=== PATIENT | female | born 1950 | race Caucasian/White ===

== ENCOUNTER 2019-05-27 12:10 | Emergency (ER) | payer BC, MEDICARE ==
[2019-05-27 13:02] VITALS: BP 138/66
--- NOTE | 2019-05-27 13:41 | UC ---
Complaint Female HPI - HPI Summary HPI Summary: Burning on urination started yesterday - History Of Current Complaint Chief Complaint: [facility]CGU Stated Complaint: URINARY COMPLAINT Time Seen by Provider: 05/27/19 13:04 Hx Obtained From: Patient ?: No Onset/Duration: Gradual Onset Timing: Intermittent Severity Initially: Mild Severity Currently: Mild Pain Intensity: 0 Character: Burning Aggravating Factor(s): Urination Associated Signs And Symptoms: Positive: Negative. Negative: Vaginal Bleeding/ Discharge, Vaginal Discharge - Allergies/Home Medications Allergies/Adverse Reactions: Allergies Allergy/AdvReac Type Severity Reaction Status Date / Time Adhesive Tape Allergy Severe Rash Verified 05/31/13 15:40 lansoprazole [From Prevacid] Allergy Severe Rash Verified 05/27/19 12:52 Penicillins Allergy Severe Rash Verified 05/27/19 12:52 Sulfa (Sulfonamide Allergy Severe Rash Verified 05/27/19 12:52 Antibiotics) Home Medications: Home Medications Acetaminophen [Acetaminophen Extra Strength] 1,000 mg PO BID PRN 05/27/19 [ History Confirmed 05/27/19] Amitriptyline TAB* [Elavil TAB*] 50 mg PO BEDTIME 05/27/19 [History Confirmed ] Aspirin [Adult Aspirin Regimen] 81 mg PO QPM 05/27/19 [History Confirmed ] Blink Tears Lubricating Eye Dr 1 dose BOTH EYES SEE INSTRUCTIONS PRN 05/27/19 [ History Confirmed 05/27/19] Escitalopram * [Lexapro 5 mg (NF)] 5 mg PO DAILY 05/27/19 [History Confirmed 08/05] Esomeprazole Magnesium [Nexium 24Hr] 20 mg PO AC 05/27/19 [History Confirmed 08/05] Eye Allergy Relief 1 drop BOTH EYES BID PRN 05/27/19 [History Confirmed 05/27/19 ] Levothyroxine TAB* [Synthroid TAB*] 50 mcg PO DAILY 05/27/19 [History Confirmed 05/27/19] Losartan/Hydrochlorothiazide [Losartan Potassium/Hydroc 100-25 mg] 1 tab PO QAM 05/27/19 [History Confirmed 05/27/19] Multivitamin [Multivitamins] 1 each PO QPM 05/27/19 [History Confirmed 05/27/19] See Med List For Supplements 05/27/19 [History] Simply Saline 1 dose .ROUTE SEE INSTRUCTIONS 05/27/19 [History Confirmed ] Vitamins B12, D3 1 tab PO QPM 05/27/19 [History Confirmed 05/27/19] metFORMIN* [Glucophage 500 MG TAB *] 500 mg PO QPM 05/27/19 [History Confirmed 05/27/19] PMH/Surg Hx/FS Hx/Imm Hx Previously Healthy: Yes Endocrine History: Diabetes, Thyroid Disease, Dyslipidemia Cardiovascular History: Hypertension - Surgical History Surgical History: Yes Surgery Procedure, Year, and Place: [facility] hysterectomy - Social History Alcohol Use: None Substance Use Type: None Smoking Status (MU): Light Every Day Tobacco Smoker Type: Cigarettes Amount Used/How Often: 1/ pack per day Household Exposure Type: Cigarettes Review of Systems All Other Systems Reviewed And Are Negative: Yes Constitutional: Positive: Negative Genitourinary: Positive: Dysuria, Frequency, Urgency. Negative: Vaginal/Penile Burning, Vaginal/Penile Itching, Vaginal/Penile Discharge, Vaginal/Penile Pain, Vaginal/Penile Tenderness Is Patient Immunocompromised?: No Physical Exam Triage Information Reviewed: Yes Appearance: Well-Appearing, No Pain Distress, Well-Nourished Vital Signs: Initial Vital Signs Temp 99 F 05/27/19 12:57 Pulse 77 05/27/19 12:57 Resp 20 05/27/19 12:57 BP 138/66 05/27/19 12:57 Pulse Ox 97 05/27/19 12:57 Vital Signs Reviewed: Yes Respiratory: Positive: Lungs clear, Normal breath sounds, No respiratory distress, No accessory muscle use Cardiovascular: Positive: RRR, No Murmur, Pulses Normal, Brisk Capillary Refill Abdomen Description: Positive: Nontender, No Organomegaly, Soft. Negative: CVA Tenderness (R), CVA Tenderness (L), Distended, Guarding, Hepatomegaly, McBurney' s Point Tenderness, Splenomegaly Bowel Sounds: Positive: Present Musculoskeletal: Positive: Strength Intact, ROM Intact Neurological: Positive: Alert, Muscle Tone Normal Psychological Exam: Normal Skin Exam: Normal Complaint Female Dx - Course Course Of Treatment: U/A positive for leukocytes - Differential Dx/Diagnosis Provider Diagnosis: UTI (urinary tract infection) Discharge - Sign-Out/Discharge Documenting (check all that apply): Patient Departure All imaging exams completed and their final reports reviewed: No Studies - Discharge Plan Condition: Good Disposition: HOME Prescriptions: Nitrofurantoin Monohyd/M-Cryst [Macrobid 100 mg Capsule] 100 mg PO BID 7 Days # 14 cap Patient Education Materials: Urinary Tract Infection in Women (DC) Referrals: Temitope Reilly MD [Primary Care Provider] - Additional Instructions: Increase fluids, Go to the ER if you develop fever, chills, worsening symptoms, back pain - Billing Disposition and Condition Condition: GOOD Disposition: Home
--- NOTE | 2019-05-31 09:27 | UC ---
- Progress Note Progress Note: Urine culture results come back from May 27, 2019. Klebsiella pneumonia grows out that's insensitive to nitrofurantoin. Patient was placed on nitrofurantoin. Patient is allergic to penicillin and sulfa based antibiotics. Nursing to call patient. Antibiotic he's to be changed. With the patient's history of penicillin allergy need to find out if she is allergic to cephalosporins. My plan would be if she does not have a severe reaction to penicillins and is not allergic to cephalosporins to start her on Keflex. However if she does have a severe reaction to penicillins are has had reactions of this once in the past I will start her on Cipro. Course/Dx - Diagnoses Provider Diagnoses: UTI (urinary tract infection) Discharge - Sign-Out/Discharge Documenting (check all that apply): Patient Departure All imaging exams completed and their final reports reviewed: No Studies - Discharge Plan Condition: Good Disposition: HOME Prescriptions: Nitrofurantoin Monohyd/M-Cryst [Macrobid 100 mg Capsule] 100 mg PO BID 7 Days # 14 cap Patient Education Materials: Urinary Tract Infection in Women (DC) Referrals: Temitope Reilly MD [Primary Care Provider] - Additional Instructions: Increase fluids, Go to the ER if you develop fever, chills, worsening symptoms, back pain - Billing Disposition and Condition Condition: GOOD Disposition: Home
== END 2019-05-27 13:48 | disposition home or self-care (01) ==
LOC: UCCORT 12:10
DX: N39.0 Urinary tract infection, site not specified (principal); Z88.0 Allergy status to penicillin; Z88.2 Allergy status to sulfonamides; E11.9 Type 2 diabetes mellitus without complications; Z79.84 Long term (current) use of oral hypoglycemic drugs; E07.9 Disorder of thyroid, unspecified; I10 Essential (primary) hypertension; F17.210 Nicotine dependence, cigarettes, uncomplicated
CPT/HCPCS: 81003; 87077; 87086; 87186; 99202; G0463